=== PATIENT | male | born 1970 | race Two or more races ===

== ENCOUNTER 2023-02-13 04:44 | Day surgery (SDC) | payer OTHER ==
[2023-02-12 15:45] VITALS: BMI 32.4
[2023-02-13 15:56] VITALS: TEMP 97.8
[2023-02-13 16:18] VITALS: BP 114/77; PULSE 64; RESP 15
== END 2023-02-13 16:30 | disposition home or self-care (01) ==
LOC: JASU-ENDO 04:44
PROVIDERS: ATTEND Student in an Organized Health Care Education/Training Program
PROC: 0DBP8ZX Excision of Rectum, Via Natural or Artificial Opening Endoscopic, Diagnostic (ICD-10-PCS; principal; 2023-02-13 14:30)
DX: D12.8 Benign neoplasm of rectum (principal); K64.8 Other hemorrhoids; L85.9 Epidermal thickening, unspecified
CPT/HCPCS: 88305-TC